=== PATIENT | female | born 1990 | race Asian ===

== ENCOUNTER 2018-04-30 10:54 | Emergency (ER) | payer BC, OTHER ==
[~2018-04-30] VITALS: Ht 153 cm; Wt 47.6 kg
[~2018-04-30 10:54] MED LIST: PRED20TA PO
[2018-04-30 11:01] VITALS: BP 116/77
[2018-04-30] MEDS ORDERED: LIDOCAINE 2% VISCOUS 15 ML SOLUTION. ONE (11:16)
[2018-04-30] MEDS ORDERED: oxyCODONE/APAP 5/325 1 TAB TABLET ONE (11:22)
[2018-04-30] MEDS: NEOMYCIN/BACITRAC/POLY TOPICAL OINTMENT 28GM TUBE. TP ONE ×2 (11:25→11:28)
[2018-04-30] MEDS ORDERED: HYDR-971 PO (11:25)
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
[2018-04-30] MEDS ORDERED: oxyCODONE/APAP 5/325 1 TAB TABLET PO ONE (11:30)
[2018-04-30] MEDS ORDERED: TETANUS AND DIPHTHERIA TOX/PF 0.5 ML VIAL. VAX IM ONE (11:30)
[2018-04-30] MEDS ORDERED: LIDOCAINE 2% VISCOUS 15 ML SOLUTION. SWSW ONE (11:30)
== END 2018-04-30 11:40 | disposition home or self-care (01) ==
LOC: ER 10:54
DX: T22.251A Burn of second degree of right shoulder, initial encounter (principal); X11.8XXA Contact with other hot tap-water, initial encounter; Y93.89 Activity, other specified; Y92.89 Other specified places as the place of occurrence of the external cause; Y99.8 Other external cause status
CPT/HCPCS: 16000; 90471; 90714; 99284-25

== ENCOUNTER 2018-05-02 09:31 | Emergency (ER) | payer BC ==
[~2018-05-02] VITALS: Ht 167.6 cm; Wt 47.6 kg
[~2018-05-02 09:31] MED LIST changes: +HYDR-971 PO
[2018-05-02 10:15] VITALS: BP 122/87
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
== END 2018-05-02 11:04 | disposition home or self-care (01) ==
LOC: ER 09:31
DX: T22.251D Burn of second degree of right shoulder, subsequent encounter (principal); T31.0 Burns involving less than 10% of body surface; X08.8XXD Exposure to other specified smoke, fire and flames, subsequent encounter
CPT/HCPCS: 99281